=== PATIENT | female | born 1965 | race Caucasian/White ===

== ENCOUNTER → 2018-12-29 | Outpatient (CLI) | payer BC ==
[~2018-12-29] MED LIST: ATEN50 PO; Cyclobenzaprine5 MG PO; HYDR1TAB94 PO; Hydrochlorothia25 MG PO; IBUP800 PO; OXYACE5T PO
== END | disposition home or self-care (01) ==
LOC: LAB SHORT 10:35 → LAB 10:35
PROVIDERS: Internal Medicine Hematology & Oncology
DX: E78.5 Hyperlipidemia, unspecified (principal); D72.829 Elevated white blood cell count, unspecified; I10 Essential (primary) hypertension; R53.83 Other fatigue
CPT/HCPCS: 83540; 83550